=== PATIENT | female | born 1980 | race Caucasian/White ===

== ENCOUNTER 2017-03-05 17:35 | Emergency (ER) | payer SELFPAY ==
[2017-03-05 17:57] VITALS: RESP 18
--- NOTE | 2017-03-05 19:37 | C.PDOC ---
History Of Present Illness 36 year old female presents to the ED with complaints of fever, headache, cough , and sore throat since yesterday. Denies visual changes, SOB, chest pain, or any other complaints at this time. Time Seen by Provider: 03/05/17 19:19 Chief Complaint (Nursing): Fever History Per: Patient History/Exam Limitations: no limitations Onset/Duration Of Symptoms: Days Current Symptoms Are (Timing): Still Present Location Of Pain: Throat Sick Contacts (Context): None Associated Symptoms: Fever, Sore Throat, Cough. denies: Chills, Sputum, Nausea , Vomiting, Diarrhea Ear Symptoms: Bilateral: None Severity: Mild Past Medical History Reviewed: Historical Data, Nursing Documentation, Vital Signs Vital Signs: Last Vital Signs Temp 97.5 F L 03/05/17 20:13 Pulse 66 03/05/17 20:13 Resp 18 03/05/17 20:13 BP 110/65 03/05/17 20:13 Pulse Ox 100 03/05/17 20:13 - Medical History PMH: Gastritis, Migraine Family History: States: Unknown Family Hx - Social History Hx Tobacco Use: No Hx Alcohol Use: No Hx Substance Use: No - Immunization History Hx Tetanus Toxoid Vaccination: No Hx Influenza Vaccination: No Hx Pneumococcal Vaccination: No Review Of Systems Except As Marked, All Systems Reviewed And Found Negative. Constitutional: Positive for: Fever. Negative for: Chills ENT: Positive for: Throat Pain Respiratory: Positive for: Cough. Negative for: Shortness of Breath, Sputum Skin: Negative for: Rash Neurological: Positive for: Headache. Negative for: Weakness, Numbness, Dizziness Physical Exam - Physical Exam Appears: Non-toxic, No Acute Distress Skin: Normal Color, Warm, Dry Head: Atraumatic, Normacephalic Eye(s): bilateral: Normal Inspection Ear(s): Bilateral: Normal Nose: Normal Oral Mucosa: Moist Throat: Normal, No Erythema, No Exudate Neck: Supple Lymphatic: No Adenopathy Chest: Symmetrical, No Deformity Cardiovascular: Rhythm Regular Respiratory: Normal Breath Sounds, No Accessory Muscle Use, No Rales, No Rhonchi , No Wheezing, Other (+Cough noted) Extremity: Normal ROM Neurological/Psych: Oriented x3, Normal Speech, Normal Cognition ED Course And Treatment O2 Sat by Pulse Oximetry: 98 (Room air) Pulse Ox Interpretation: Normal Medical Decision Making Medical Decision Making: Plan: -Tessalone Perles -Prednisone -Reassess On re-exam, the patient reports improvement of symptoms. Lungs are CTA, heart is RRR, abdomen is soft, non-tender and tolerating PO well. Disposition - Disposition Referrals: [facility] at [facility] [Outside] Disposition: HOME/ ROUTINE Disposition Time: 20:03 Condition: GOOD Additional Instructions: Follow up with the medical doctor within 1-2 days. Return if worsened. 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 - Scribe Statement The provider has reviewed the documentation as recorded by the Scribe Karmen briceno. All medical record entries made by the Scribe were at my direction and personally dictated by me. I have reviewed the chart and agree that the record accurately reflects my personal performance of the history, physical exam, medical decision making, and the department course for this patient. I have also personally directed, reviewed, and agree with the discharge instructions and disposition.
--- NOTE | 2017-03-05 20:01 | C.PDOC ---
Time Seen by Provider: 03/05/17 19:19 Chief Complaint (Nursing): Fever Past Medical History Vital Signs: Last Vital Signs Temp 97.6 F 03/05/17 17:54 Pulse 18 L 03/05/17 17:54 Resp 18 03/05/17 17:54 BP 106/69 03/05/17 17:54 Pulse Ox 98 03/05/17 17:54 - Medical History PMH: Gastritis, Migraine - Social History Hx Tobacco Use: No Hx Alcohol Use: No Hx Substance Use: No - Immunization History Hx Tetanus Toxoid Vaccination: No Hx Influenza Vaccination: No Hx Pneumococcal Vaccination: No ED Course And Treatment O2 Sat by Pulse Oximetry: 98
[2017-03-05 20:14] VITALS: BP 110/65; PULSE 66; TEMP 97.5
[2017-03-09 04:42] VITALS: O2SAT 98
== END 2017-03-05 20:17 | disposition home or self-care (01) ==
LOC: C.ER 17:35
DX: J06.9 Acute upper respiratory infection, unspecified (principal)

== ENCOUNTER 2017-12-09 20:55 | Emergency (ER) | payer OTHER ==
[2017-12-09 21:33] VITALS: BP 126/88; PULSE 94; RESP 16; TEMP 98.6; O2SAT 96
--- NOTE | 2017-12-09 23:39 | C.PDOC ---
History Of Present Illness 37 year old female with a Hx of migraines presents to the ER with a complaint of a frontal headache for the past 3 days, associated with nausea and a dry cough that began today. Patient states pain is similar to past migraine. Pt took excedrin migraine today with no relief; denies fever, dizziness, or neck pain. Time Seen by Provider: 12/09/17 21:54 Chief Complaint (Nursing): Headache History Per: Patient History/Exam Limitations: no limitations Onset/Duration Of Symptoms: Days Current Symptoms Are (Timing): Still Present Preceeding Symptoms: Known Migraine Symptoms Associated Symptoms: Nausea. denies: Photophobia, Blurred Vision, Vomiting, Extremity Weakness Recent travel outside of the [place]: No Past Medical History Reviewed: Historical Data, Nursing Documentation, Vital Signs Vital Signs: Last Vital Signs Temp 98.6 F 12/09/17 21:30 Pulse 94 H 12/09/17 21:30 Resp 16 12/09/17 21:30 BP 126/88 12/09/17 21:30 Pulse Ox 96 12/10/17 01:12 - Medical History PMH: Gastritis, Migraine Family History: States: Unknown Family Hx - Social History Hx Tobacco Use: No Hx Alcohol Use: No Hx Substance Use: No - Immunization History Hx Tetanus Toxoid Vaccination: No Hx Influenza Vaccination: No Hx Pneumococcal Vaccination: No Review Of Systems Constitutional: Negative for: Fever, Chills Respiratory: Positive for: Cough. Negative for: Sputum Gastrointestinal: Positive for: Nausea. Negative for: Vomiting Musculoskeletal: Negative for: Neck Pain Neurological: Positive for: Headache. Negative for: Dizziness Physical Exam - Physical Exam Appears: Non-toxic, No Acute Distress Skin: Normal Color, Warm, Dry Head: Atraumatic, Normacephalic, Tenderness (Frontal sinus) Eye(s): bilateral: Normal Inspection Ear(s): Bilateral: Normal Oral Mucosa: Moist Neck: Normal, No Midline Cervical Tenderness, No Paracervical Tenderness, Supple Chest: Symmetrical, No Tenderness Cardiovascular: Rhythm Regular Respiratory: Normal Breath Sounds, No Rales, No Rhonchi, No Wheezing Neurological/Psych: Oriented x3, Normal Speech ED Course And Treatment O2 Sat by Pulse Oximetry: 96 (Room air) Pulse Ox Interpretation: Normal Progress Note: Toradol IM and zofran ODT administered. On reevaluation, patient is resting comfortably in no pain or distress and feels comfortable going home. Will discharge home with Rx and instructions to follow up with PMD or return to the ER if symptoms worsen. Disposition Counseled Patient/Family Regarding: Diagnosis, Need For Followup, Rx Given - Disposition Referrals: [facility] at [facility] [Outside] Disposition: HOME/ ROUTINE Disposition Time: 23:37 Condition: STABLE Additional Instructions: Keep hydrated Increase PO fluids Take meds as prescribed Return to ER if worse Prescriptions: Acetaminophen/Butalbital/Caf [Fioricet] 1 tab PO TID PRN #20 tab PRN Reason: Headache Ibuprofen [Motrin] 600 mg PO Q6H #20 tab Instructions: Migraine Headache (ED) Forms: [employer] (Spanish), Work Excuse Print Language: EMIRATI - Clinical Impression Clinical Impression: Migraine - 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 - Scribe Statement The provider has reviewed the documentation as recorded by the Scribvamshi Banda All medical record entries made by the Scribe were at my direction and personally dictated by me. I have reviewed the chart and agree that the record accurately reflects my personal performance of the history, physical exam, medical decision making, and the department course for this patient. I have also personally directed, reviewed, and agree with the discharge instructions and disposition.
== END 2017-12-09 23:52 | disposition home or self-care (01) ==
LOC: C.ER 20:55
DX: G43.909 Migraine, unspecified, not intractable, without status migrainosus (principal)
CPT/HCPCS: 96372; 99284; J1885

== ENCOUNTER 2018-08-24 18:12 | Emergency (ER) | payer OTHER ==
[2018-08-24 18:30] VITALS: BP 134/74; PULSE 75; RESP 18; TEMP 98.3; O2SAT 100
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
--- NOTE | 2018-08-25 11:05 | RAD ---
Date of service: 08/24/2018 PROCEDURE: Cervical Spine Radiographs. HISTORY: Pain. COMPARISON: None. FINDINGS: BONES: There is normal alignment of the cervical vertebral bodies. There is straightening of the cervical spine with loss of normal cervical lordosis. Vertebral height is normal. Bone mineralization is normal. There is no acute fracture or traumatic anterior listhesis. The craniocervical junction is normal. The atlantoaxial joint normal. DISC SPACES: Normal. SOFT TISSUES: Normal. No prevertebral soft tissue swelling. OTHER FINDINGS: None. IMPRESSION: No acute fracture or traumatic anterior listhesis. Straightening of the cervical spine may be positional or related to muscle spasm.
--- NOTE | 2018-08-25 11:07 | RAD ---
Date of service: 08/24/2018 PROCEDURE: Radiographs of the Left Shoulder HISTORY: injury COMPARISON: No prior. FINDINGS: BONES: Bone alignment and mineralization are normal. There is no acute displaced fracture or bone destruction. JOINTS: Normal. Glenohumeral and acromioclavicular joints preserved. No osteoarthritis. SOFT TISSUES: Normal. OTHER FINDINGS: None. IMPRESSION: No acute fracture or dislocation.
== END 2018-08-24 20:23 | disposition home or self-care (01) ==
LOC: C.ER 18:12
DX: S16.1XXA Strain of muscle, fascia and tendon at neck level, initial encounter (principal); S46.912A Strain of unspecified muscle, fascia and tendon at shoulder and upper arm level, left arm, initial encounter; V49.9XXA Car occupant (driver) (passenger) injured in unspecified traffic accident, initial encounter

== ENCOUNTER 2019-01-29 10:20 | Emergency (ER) | payer OTHER | END 2019-01-29 13:24 | disposition home or self-care (01) | LOC: C.ER 10:20 ==